=== PATIENT | male | born 1990 | race Caucasian/White ===

== ENCOUNTER 2019-05-15 19:18 | Emergency (ER) | payer SELFPAY ==
[~2019-05-15] VITALS: Ht 172.7 cm; Wt 73.0 kg
[2019-05-15 19:21] VITALS: BP 101/57
[2019-05-15] MEDS ORDERED: LIDOCAINE 1%/EPI 1:100,000 10 ML VIAL IJ ONE (19:45)
[2019-05-15] MEDS ORDERED: ACETAMINOPHEN 325MG TABLET PO ONE (19:45)
[2019-05-15] MEDS ORDERED: LIDOCAINE HCL/PF 1% 10 MG/ML 5ML VIAL IJ ONE (19:45)
[2019-05-15] MEDS ORDERED: TETANUS, DIPHTHERIA, PERTUSSIS VAC/PF 0.5ML (>7YR OLD) IM ONE (19:45)
[2019-05-15] MEDS ORDERED: LIDOCAINE HCL/EPINEPHRINE 1%-EPI 1:100,000 20 ML VIAL INFIL NR (20:45)
== END 2019-05-15 22:49 | disposition home or self-care (01) ==
LOC: ER 19:32
DX: S01.01XA Laceration without foreign body of scalp, initial encounter (principal); S01.119A Laceration without foreign body of unspecified eyelid and periocular area, initial encounter; F10.129 Alcohol abuse with intoxication, unspecified; F17.210 Nicotine dependence, cigarettes, uncomplicated; Y90.9 Presence of alcohol in blood, level not specified; W01.0XXA Fall on same level from slipping, tripping and stumbling without subsequent striking against object, initial encounter; Y93.9 Activity, unspecified; Y92.830 Public park as the place of occurrence of the external cause; Z71.6 Tobacco abuse counseling
CPT/HCPCS: 12002; 12013; 70450; 71045; 72125; 73030; 90471; 90715; 99284; 99406; A4217; J3490; Z7610

== ENCOUNTER 2019-05-17 10:55 | Emergency (ER) | payer SELFPAY ==
[~2019-05-17] VITALS: Ht 167.6 cm; Wt 70.0 kg
[2019-05-17] MEDS ORDERED: IBUPROFEN 600MG TABLET PO ONE (11:30)
[2019-05-17 11:51] VITALS: BP 124/81
== END 2019-05-17 11:51 | disposition home or self-care (01) ==
LOC: ER 10:55
DX: S01.01XD Laceration without foreign body of scalp, subsequent encounter (principal); S01.112D Laceration without foreign body of left eyelid and periocular area, subsequent encounter; Y04.0XXD Assault by unarmed brawl or fight, subsequent encounter
CPT/HCPCS: 99281; 99283

== ENCOUNTER 2019-06-04 12:52 | Emergency (ER) | payer SELFPAY ==
[~2019-06-04] VITALS: Ht 170.2 cm; Wt 70.0 kg
[2019-06-04 15:30] VITALS: BP 148/82
[2019-06-04] MEDS ORDERED: BACITRACIN ZINC OINT UDPKT TOP ONE (15:30)
[2019-06-04] MEDS ORDERED: BACITRACIN 15GM TUBE TOP SCH (16:00)
== END 2019-06-04 15:54 | disposition home or self-care (01) ==
LOC: ER 12:52
DX: S01.112D Laceration without foreign body of left eyelid and periocular area, subsequent encounter (principal); S01.01XD Laceration without foreign body of scalp, subsequent encounter; X58.XXXD Exposure to other specified factors, subsequent encounter
CPT/HCPCS: 99282

== ENCOUNTER 2019-10-07 13:08 | Emergency (ER) | payer SELFPAY ==
[~2019-10-07] VITALS: Ht 165.1 cm; Wt 89.0 kg
[2019-10-07 13:17] VITALS: BP 136/85
== END 2019-10-07 18:57 | disposition left against medical advice (07) ==
LOC: ER 13:08
DX: Z53.21 Procedure and treatment not carried out due to patient leaving prior to being seen by health care provider (principal)

== ENCOUNTER 2020-04-30 13:59 | Emergency (ER) | payer MEDICAID ==
[~2020-04-30] VITALS: Ht 170.2 cm; Wt 69.0 kg
[2020-04-30 18:33] VITALS: BP 120/60
== END 2020-04-30 16:00 | disposition home or self-care (01) ==
LOC: ER 13:59
DX: Z03.818 Encounter for observation for suspected exposure to other biological agents ruled out (principal)
CPT/HCPCS: 99283; C9803; U0003; 99281

== ENCOUNTER 2020-12-16 09:26 | Emergency (ER) | payer MEDICAID ==
[~2020-12-16] VITALS: Ht 175.3 cm; Wt 77.0 kg
[2020-12-16 10:57] VITALS: BP 97/64
[2020-12-19] MEDS ORDERED: CEPH500C2 MT (03:07)
[2020-12-19] MEDS ORDERED: SULF-288 MT (03:07)
[2020-12-19] MEDS ORDERED: MUPI15CR11 TP (16:08)
[2020-12-19] MEDS ORDERED: VALA100044 MT (18:35)
== END 2020-12-16 10:56 | disposition home or self-care (01) ==
LOC: ER 09:26
DX: L73.9 Follicular disorder, unspecified (principal); L01.02 Bockhart's impetigo; L98.8 Other specified disorders of the skin and subcutaneous tissue; R51.9 Headache, unspecified
CPT/HCPCS: 99283

== ENCOUNTER 2021-05-27 12:00 | Emergency (ER) | payer MEDICAID, OTHER ==
[~2021-05-27] VITALS: Ht 170.2 cm; Wt 70.0 kg
[~2021-05-27 12:00] MED LIST: CEPH500C2 MT; MUPI15CR11 TP; SULF-288 MT; VALA100044 MT
[2021-05-27] MEDS ORDERED: ACETAMINOPHEN 325MG TABLET PO ONE (12:45)
[2021-05-27] MEDS ORDERED: IBUPROFEN 400MG TABLET PO ONE (12:45)
[2021-05-27 13:09] VITALS: BP 102/66
[2021-05-27] MEDS ORDERED: ACET-2708 MT (13:14)
[2021-05-27] MEDS ORDERED: NAPR-1176 MT (13:14)
== END 2021-05-27 13:30 | disposition home or self-care (01) ==
LOC: ER 12:00
DX: M79.10 Myalgia, unspecified site (principal); Z20.822 Contact with and (suspected) exposure to COVID-19
CPT/HCPCS: 99283; C9803; U0003; U0005

== ENCOUNTER 2021-06-02 07:57 | Emergency (ER) | payer MEDICAID ==
[~2021-06-02] VITALS: Ht 167.6 cm; Wt 73.0 kg
[~2021-06-02 07:57] MED LIST changes: +ACET-2708 MT; +NAPR-1176 MT
[2021-06-02 09:32] LABS: BASOPHILS % 0.2 % (0.0-2.0); HEMATOCRIT. 50.3 % (42.0-52.0); HEMOGLOBIN. 17.1 g/dL (14.0-18.0); MEAN CORPUSCULAR HEMOGLOBIN 31.6 pg (28.0-32.0); MONOCYTES % 2.9 % (2.0-8.0); NEUTROPHILS % 84.9 % (40.0-76.0); PLATELET 143 x1000/uL (130-400); RED BLOOD CELL COUNT 5.41 mill/uL (4.7-6.1); RED CELL DISTRIBUTION WIDTH 13.6 % (11.6-14.6)
[2021-06-02 09:38] LABS: CHLORIDE 104 mEq/L (98-107)
[2021-06-02] MEDS ORDERED: DEXAMETHASONE 4MG/ML 1ML VIAL IM ONE (10:00)
[2021-06-02] MEDS ORDERED: GUAIFENESIN/CODEINE 200-20MG/10ML UDC PO ONE (10:00)
[2021-06-02] MEDS ORDERED: CODE10LI MT (10:11)
[2021-06-02 10:42] VITALS: BP 112/61
== END 2021-06-02 10:43 | disposition home or self-care (01) ==
LOC: ER 07:57
DX: U07.1 COVID-19 (principal); B34.9 Viral infection, unspecified; Z86.16 Personal history of COVID-19
CPT/HCPCS: 36415; 71045; 80053; 85025; 96372; 99284; J1100

== ENCOUNTER 2021-06-07 02:16 | Inpatient (IN) | payer MEDICAID, OTHER ==
[~2021-06-07] VITALS: Ht 170.2 cm; Wt 68.5 kg
[~2021-06-07 02:16] MED LIST changes: +CODE10LI MT
[2021-06-07 03:01] LABS: CHLORIDE 99 mEq/L (98-107)
[2021-06-07 03:03] LABS: BASOPHILS % 0.2 % (0.0-2.0); EOSINOPHILS % 1.5 % (0.0-5.0); HEMATOCRIT. 47.4 % (42.0-52.0); HEMOGLOBIN. 16.5 g/dL (14.0-18.0); LYMPHOCYTES % 9.8 % (20.0-50.0); MEAN CORPUSCULAR HEMOGLOBIN 31.8 pg (28.0-32.0); MEAN CORPUSCULAR VOLUME 91.3 fL (80.0-94.0); MEAN PLATELET VOLUME 8.3 fl (7.4-10.4); MONOCYTES % 6.4 % (2.0-8.0); NEUTROPHILS % 82.1 % (40.0-76.0); PLATELET 415 x1000/uL (130-400); RED BLOOD CELL COUNT 5.19 mill/uL (4.7-6.1); RED CELL DISTRIBUTION WIDTH 13.6 % (11.6-14.6)
[2021-06-07] MEDS ORDERED: AZITHROMYCIN 500 MG in DEXT 5% WATER 250 ML IV ONE (04:45)
[2021-06-07] MEDS ORDERED: CEFTRIAXONE 1 G PREMIX 50 ML IV ONE (04:45)
[2021-06-07] MEDS ORDERED: IOHEXOL-350 100 ML BOTTLE ONE (06:26)
[2021-06-07] MEDS ORDERED: NALOXONE HCL 0.4MG/ML VIAL IV PRN (09:00)
[2021-06-07] MEDS: HYDROCODONE/ACETAMINOPHEN 10/325MG TABLET PO PRN ×3 (09:17→16:23)
[2021-06-07] MEDS ORDERED: ONDANSETRON HCL 4MG/2ML INJ IV PRN (13:00)
[2021-06-07] MEDS ORDERED: CEFTRIAXONE 1 G PREMIX 50 ML IV SCH (13:00)
[2021-06-07 16:00] VITALS: BP 118/79
[2021-06-07] MEDS: ENOXAPARIN 40MG/0.4ML SYR SUBCUT SCH (16:22)
[2021-06-07] MEDS ORDERED: ALBUTEROL 6.7GM HFA INHALER ORI PRN (16:45)
[2021-06-07] MEDS ORDERED: CHOL400D7 MT (17:00)
[2021-06-07] MEDS ORDERED: ASCO-339 MT (17:00)
[2021-06-07] MEDS ORDERED: ZINC50TA69 MT (17:00)
[2021-06-07 20:00] VITALS: BP 107/77
[2021-06-07] MEDS: ACETAMINOPHEN 325MG TABLET PO PRN (21:41)
[2021-06-07] MEDS ORDERED: ZOLPIDEM TARTRATE 5MG TABLET PO PRN (21:45)
[2021-06-08] VITALS: BP 99/66
[2021-06-08] MEDS: GUAIFENESIN 200MG/10ML SUGAR FREE UDC PO PRN ×2 (02:52→11:57)
[2021-06-08 04:00] VITALS: BP 114/78
[2021-06-08] MEDS: ACETAMINOPHEN 325MG TABLET PO PRN (05:05)
[2021-06-08] MEDS: CEFTRIAXONE 1,000 MG in DEXTROSE 5% WATER 50 ML IV SCH (05:05)
[2021-06-08 06:01] LABS: HEMATOCRIT. 43.8 % (42.0-52.0); HEMOGLOBIN. 14.8 g/dL (14.0-18.0); MEAN CORPUSCULAR HEMOGLOBIN 31.3 pg (28.0-32.0); MEAN CORPUSCULAR VOLUME 92.5 fL (80.0-94.0); MEAN PLATELET VOLUME 8.2 fl (7.4-10.4); PLATELET 371 x1000/uL (130-400); RED BLOOD CELL COUNT 4.73 mill/uL (4.7-6.1); RED CELL DISTRIBUTION WIDTH 13.5 % (11.6-14.6)
[2021-06-08 06:08] LABS: CHLORIDE 98 mEq/L (98-107)
[2021-06-08 08:00] VITALS: BP 105/73
[2021-06-08] MEDS: DEXAMETHASONE 6MG TABLET PO SCH (08:51)
[2021-06-08] MEDS: AZITHROMYCIN 250 MG TABLET PO SCH (08:51)
[2021-06-08] MEDS ORDERED: POTASSIUM CHLORIDE 20MEQ TABLET SR PO NR (13:00)
[2021-06-08] MEDS: LORAZEPAM 2MG/ML CPJ IV PRN ×2 (13:16→20:09)
[2021-06-08] MEDS: ENOXAPARIN 40MG/0.4ML SYR SUBCUT SCH (14:02)
[2021-06-08 16:00] VITALS: BP 111/72
[2021-06-08] MEDS: BENZONATATE 100MG CAPSULE PO PRN (18:02)
[2021-06-08 18:48] VITALS: BP 117/66
[2021-06-08 20:00] VITALS: BP 115/79
[2021-06-08] MEDS: HYDROCODONE/ACETAMINOPHEN 10/325MG TABLET PO PRN (20:08)
[2021-06-08 21:01] LABS: PLATELET ESTIMATE NORMAL
[2021-06-09] VITALS: BP 101/55
[2021-06-09 04:00] VITALS: BP 104/66
[2021-06-09] MEDS: CEFTRIAXONE 1,000 MG in DEXTROSE 5% WATER 50 ML IV SCH (06:40)
[2021-06-09] MEDS: ACETAMINOPHEN 325MG TABLET PO PRN (06:51)
[2021-06-09 08:00] VITALS: BP 112/68
[2021-06-09] MEDS: AZITHROMYCIN 250 MG TABLET PO SCH (08:53)
[2021-06-09] MEDS: DEXAMETHASONE 6MG TABLET PO SCH (08:53)
[2021-06-09] MEDS: LORAZEPAM 2MG/ML CPJ IV PRN (11:02)
[2021-06-09 12:00] VITALS: BP 121/84
[2021-06-09] MEDS: ENOXAPARIN 40MG/0.4ML SYR SUBCUT SCH (13:30)
[2021-06-09 16:00] VITALS: BP 109/67
[2021-06-09] MEDS: HYDROCODONE/ACETAMINOPHEN 10/325MG TABLET PO PRN ×2 (16:39→21:07)
[2021-06-09] MEDS: GUAIFENESIN 200MG/10ML SUGAR FREE UDC PO PRN (16:39)
[2021-06-09 20:00] VITALS: BP 107/71
[2021-06-10] VITALS (53 sets, daily range): BP systolic 99–150; BP diastolic 55–118
[2021-06-10] MEDS: CEFTRIAXONE 1,000 MG in DEXTROSE 5% WATER 50 ML IV SCH (05:24)
[2021-06-10] MEDS: AZITHROMYCIN 250 MG TABLET PO SCH (09:00)
[2021-06-10] MEDS ORDERED: MORPHINE SULFATE 2 MG/ML CPJ (NOT FOR IM USE) IV PRN (09:00)
[2021-06-10 09:41] LABS: BG BASE EXCESS -1.8 mmol/L (-2.0-2.0); BG FRACTION INSPIRED OXYGEN 100; BG HCO3 ACT 23.4 mmol/L (22.0-26.0); BG PCO2 41.6 mmHg (35.0-45.0); BG PH 7.368 (7.350-7.450); BG PO2 139.3 mmHg (75.0-100.0); BG SAMPLE SITE RIGHT RADIAL; BG VENT MODE MASK - CPAP
[2021-06-10] MEDS: FAMOTIDINE 20MG/2ML VIAL IV SCH (09:55)
[2021-06-10] MEDS: DEXAMETHASONE 10 MG/ML VIAL IV SCH (09:55)
[2021-06-10] MEDS: ENOXAPARIN 40MG/0.4ML SYR SUBCUT SCH (14:12)
[2021-06-10] MEDS: AZITHROMYCIN 250 MG in DEXT 5% WATER 250 ML IV SCH (14:13)
[2021-06-10] MEDS: IVERMECTIN 3 MG TABLET PO SCH (16:51)
[2021-06-10] MEDS: ACETAMINOPHEN 325MG TABLET PO PRN (16:51)
[2021-06-10] MEDS: HYDROCODONE/ACETAMINOPHEN 10/325MG TABLET PO PRN (20:28)
[2021-06-11] VITALS (69 sets, daily range): BP systolic 49–162; BP diastolic 43–99
[2021-06-11] MEDS: HYDROCODONE/ACETAMINOPHEN 10/325MG TABLET PO PRN (01:04)
[2021-06-11] MEDS: CEFTRIAXONE 1,000 MG in DEXTROSE 5% WATER 50 ML IV SCH (05:17)
[2021-06-11 05:21] LABS: HEMATOCRIT. 45.6 % (42.0-52.0); HEMOGLOBIN. 15.6 g/dL (14.0-18.0); MEAN CORPUSCULAR HEMOGLOBIN 31.3 pg (28.0-32.0); MEAN CORPUSCULAR VOLUME 91.4 fL (80.0-94.0); MEAN PLATELET VOLUME 8.1 fl (7.4-10.4); PLATELET 248 x1000/uL (130-400); RED BLOOD CELL COUNT 4.99 mill/uL (4.7-6.1); RED CELL DISTRIBUTION WIDTH 13.7 % (11.6-14.6)
[2021-06-11 05:24] LABS: CHLORIDE 99 mEq/L (98-107)
[2021-06-11] MEDS: FAMOTIDINE 20MG/2ML VIAL IV SCH (08:33)
[2021-06-11] MEDS: DEXAMETHASONE 10 MG/ML VIAL IV SCH (08:33)
[2021-06-11 09:49] LABS: PLATELET ESTIMATE NORMAL
[2021-06-11] MEDS: LORAZEPAM 2MG/ML CPJ IV PRN ×3 (11:49→23:35)
[2021-06-11] MEDS ORDERED: HALOPERIDOL LACTATE 5MG/ML VIAL IM PRN (14:15)
[2021-06-11] MEDS: ENOXAPARIN 40MG/0.4ML SYR SUBCUT SCH (14:20)
[2021-06-11] MEDS: AZITHROMYCIN 250 MG in DEXT 5% WATER 250 ML IV SCH (14:21)
[2021-06-11 17:15] LABS: *AMPHETAMINES SCREEN URINE NEGATIVE (NEGATIVE); *BARBITURATES SCREEN URINE NEGATIVE (NEGATIVE); *BENZODIAZEPINES SCREEN URINE NEGATIVE (NEGATIVE); *COCAINE SCREEN URINE NEGATIVE (NEGATIVE); METHADONE URINE SCREEN NEGATIVE (NEGATIVE); OPIATES URINE SCREEN PRESUMTIVE POSITIVE (NEGATIVE)
[2021-06-11 17:16] LABS: CANNABINOID URINE SCREEN NEGATIVE (NEGATIVE); PHENCYCLIDINE URINE SCREEN NEGATIVE (NEGATIVE)
[2021-06-11] MEDS: IVERMECTIN 3 MG TABLET PO SCH (18:06)
[2021-06-12] VITALS (50 sets, daily range): BP systolic 96–136; BP diastolic 37–92
[2021-06-12] MEDS: FAMOTIDINE 20MG/2ML VIAL IV SCH (09:51)
[2021-06-12] MEDS: DEXAMETHASONE 10 MG/ML VIAL IV SCH (09:51)
[2021-06-12] MEDS: ENOXAPARIN 40MG/0.4ML SYR SUBCUT SCH (14:28)
[2021-06-12] MEDS: ACETAMINOPHEN 325MG TABLET PO PRN ×2 (15:01→23:03)
[2021-06-12] MEDS: IVERMECTIN 3 MG TABLET PO SCH (15:01)
[2021-06-13] VITALS (22 sets, daily range): BP systolic 90–140; BP diastolic 47–86
[2021-06-13] MEDS: FAMOTIDINE 20MG/2ML VIAL IV SCH (08:02)
[2021-06-13] MEDS: DEXAMETHASONE 10 MG/ML VIAL IV SCH (08:02)
[2021-06-13] MEDS: LORAZEPAM 2MG/ML CPJ IV PRN ×2 (11:31→23:16)
[2021-06-13 11:46] LABS: HEMATOCRIT. 45.3 % (42.0-52.0); HEMOGLOBIN. 15.3 g/dL (14.0-18.0); MEAN CORPUSCULAR HEMOGLOBIN 31.2 pg (28.0-32.0); MEAN CORPUSCULAR VOLUME 92.7 fL (80.0-94.0); MEAN PLATELET VOLUME 8.9 fl (7.4-10.4); PLATELET 334 x1000/uL (130-400); RED BLOOD CELL COUNT 4.89 mill/uL (4.7-6.1); RED CELL DISTRIBUTION WIDTH 13.3 % (11.6-14.6)
[2021-06-13 13:47] LABS: CHLORIDE 100 mEq/L (98-107)
[2021-06-13] MEDS: ENOXAPARIN 40MG/0.4ML SYR SUBCUT SCH (14:08)
[2021-06-13 14:56] LABS: PLATELET ESTIMATE NORMAL
[2021-06-13] MEDS: IVERMECTIN 3 MG TABLET PO SCH (15:55)
[2021-06-14] VITALS: BP 109/79
[2021-06-14 04:00] VITALS: BP 110/67
[2021-06-14 08:00] VITALS: BP 96/64
[2021-06-14] MEDS: FAMOTIDINE 20MG/2ML VIAL IV SCH (10:33)
[2021-06-14] MEDS: DEXAMETHASONE 10 MG/ML VIAL IV SCH (10:33)
[2021-06-14 12:00] VITALS: BP 106/71
[2021-06-14] MEDS: ENOXAPARIN 40MG/0.4ML SYR SUBCUT SCH (13:28)
[2021-06-14 16:00] VITALS: BP 110/79
[2021-06-14] MEDS: IVERMECTIN 3 MG TABLET PO SCH (17:00)
[2021-06-14 20:00] VITALS: BP 115/79
[2021-06-14] MEDS: FAMOTIDINE 20MG TABLET PO SCH (22:17)
[2021-06-14] MEDS: LORAZEPAM 2MG/ML CPJ IV PRN (22:18)
[2021-06-15] VITALS: BP 100/76
[2021-06-15 04:00] VITALS: BP 103/67
[2021-06-15 08:00] VITALS: BP 112/70
[2021-06-15] MEDS: DEXAMETHASONE 10 MG/ML VIAL IV SCH (10:39)
[2021-06-15] MEDS: FAMOTIDINE 20MG TABLET PO SCH ×2 (10:39→21:06)
[2021-06-15 12:00] VITALS: BP 112/70
[2021-06-15] MEDS: ENOXAPARIN 40MG/0.4ML SYR SUBCUT SCH (14:51)
[2021-06-15 16:00] VITALS: BP 118/71
[2021-06-15 20:00] VITALS: BP 104/71
[2021-06-15] MEDS: ACETAMINOPHEN 325MG TABLET PO PRN (23:35)
[2021-06-16] VITALS: BP 110/67
[2021-06-16 04:00] VITALS: BP 105/57
[2021-06-16] MEDS: LORAZEPAM 2MG/ML CPJ IV PRN (04:37)
[2021-06-16 08:00] VITALS: BP 107/55
[2021-06-16] MEDS: DEXAMETHASONE 10 MG/ML VIAL IV SCH (10:17)
[2021-06-16] MEDS: BENZONATATE 100MG CAPSULE PO PRN (10:18)
[2021-06-16] MEDS: FAMOTIDINE 20MG TABLET PO SCH ×2 (10:18→21:29)
[2021-06-16] MEDS: ACETAMINOPHEN 325MG TABLET PO PRN ×2 (10:18→21:29)
[2021-06-16 12:00] VITALS: BP 110/69
[2021-06-16 15:50] LABS: BG BASE EXCESS 2.3 mmol/L (-2.0-2.0); BG CARBOXYHEMOGLOBIN 0.6 % (0.5-1.5); BG FRACTION INSPIRED OXYGEN 21; BG HCO3 ACT 26.6 mmol/L (22.0-26.0); BG METHEMOGLOBIN 0.2 % (0.0-1.5); BG OXYGEN SATURATION 91.9 % (92.0-98.5); BG OXYHEMOGLOBIN 91.2 % (94.0-97.0); BG PCO2 40.6 mmHg (35.0-45.0); BG PH 7.435 (7.350-7.450); BG PO2 58.4 mmHg (75.0-100.0); BG SAMPLE SITE RIGHT BRACHIAL; BG TOTAL HEMOGLOBIN 16.5 g/dL (12.0-18.0); BG VENT MODE ROOM AIR
[2021-06-16] MEDS: ENOXAPARIN 40MG/0.4ML SYR SUBCUT SCH (16:06)
[2021-06-16 16:15] VITALS: BP 107/71
[2021-06-16 20:00] VITALS: BP 115/77
[2021-06-16] MEDS: ZOLPIDEM TARTRATE 5MG TABLET PO PRN (21:29)
[2021-06-17] VITALS: BP 107/76
[2021-06-17 04:00] VITALS: BP 105/71
[2021-06-17] MEDS: ACETAMINOPHEN 325MG TABLET PO PRN ×2 (05:19→19:58)
[2021-06-17 08:06] VITALS: BP 123/75
[2021-06-17] MEDS: FAMOTIDINE 20MG TABLET PO SCH ×2 (08:46→20:00)
[2021-06-17] MEDS: DEXAMETHASONE 10 MG/ML VIAL IV SCH (08:46)
[2021-06-17 12:00] VITALS: BP 115/72
[2021-06-17] MEDS: ENOXAPARIN 40MG/0.4ML SYR SUBCUT SCH (13:39)
[2021-06-17 16:00] VITALS: BP 129/86
[2021-06-17 20:00] VITALS: BP 125/73
[2021-06-17] MEDS: ZOLPIDEM TARTRATE 5MG TABLET PO PRN (22:30)
[2021-06-18] VITALS: BP 104/73
[2021-06-18] MEDS ORDERED: HYDROCODONE/ACETAMINOPHEN 10/325MG TABLET PO PRN
[2021-06-18 04:00] VITALS: BP 103/69
[2021-06-18 08:00] VITALS: BP 112/80
[2021-06-18] MEDS: DEXAMETHASONE 10 MG/ML VIAL IV SCH (08:26)
[2021-06-18] MEDS: BENZONATATE 100MG CAPSULE PO PRN ×2 (08:26→23:52)
[2021-06-18] MEDS: FAMOTIDINE 20MG TABLET PO SCH ×2 (08:27→20:04)
[2021-06-18 12:00] VITALS: BP 127/73
[2021-06-18] MEDS: ENOXAPARIN 40MG/0.4ML SYR SUBCUT SCH (12:49)
[2021-06-18 16:00] VITALS: BP 117/76
[2021-06-18] MEDS: ALBUTEROL 6.7GM HFA INHALER ORI PRN (17:20)
[2021-06-18] MEDS: LIDOCAINE 5% PATCH TOP SCH (18:15)
[2021-06-18 20:00] VITALS: BP 106/72
[2021-06-18] MEDS: KETOROLAC 30MG/ML VIAL IV PRN (20:05)
[2021-06-18] MEDS: ACETAMINOPHEN 325MG TABLET PO PRN (23:52)
[2021-06-19] VITALS: BP 110/75
[2021-06-19] MEDS: ZOLPIDEM TARTRATE 5MG TABLET PO PRN (00:44)
[2021-06-19 04:00] VITALS: BP 94/55
[2021-06-19 08:00] VITALS: BP 95/62
[2021-06-19] MEDS: DEXAMETHASONE 10 MG/ML VIAL IV SCH (08:32)
[2021-06-19] MEDS: FAMOTIDINE 20MG TABLET PO SCH ×2 (08:32→21:15)
[2021-06-19] MEDS: ALBUTEROL 6.7GM HFA INHALER ORI PRN ×2 (09:02→18:24)
[2021-06-19] MEDS: ACETAMINOPHEN 325MG TABLET PO PRN ×2 (10:10→16:19)
[2021-06-19 12:00] VITALS: BP 128/82
[2021-06-19] MEDS: ENOXAPARIN 40MG/0.4ML SYR SUBCUT SCH (12:53)
[2021-06-19] MEDS: KETOROLAC 30MG/ML VIAL IV PRN (12:53)
[2021-06-19 16:00] VITALS: BP 111/80
[2021-06-19] MEDS: LIDOCAINE 5% PATCH TOP SCH (16:11)
[2021-06-19 20:00] VITALS: BP 109/73
[2021-06-19] MEDS: TRAMADOL 50MG TABLET PO PRN (21:16)
[2021-06-20] VITALS: BP 119/55
[2021-06-20] MEDS: ZOLPIDEM TARTRATE 5MG TABLET PO PRN (00:15)
[2021-06-20] MEDS: ACETAMINOPHEN 325MG TABLET PO PRN (00:15)
[2021-06-20 04:00] VITALS: BP 95/63
[2021-06-20] MEDS: TRAMADOL 50MG TABLET PO PRN (06:41)
[2021-06-20] MEDS: ALBUTEROL 6.7GM HFA INHALER ORI PRN ×2 (07:05→13:47)
[2021-06-20 08:00] VITALS: BP 106/72
[2021-06-20] MEDS: FAMOTIDINE 20MG TABLET PO SCH ×2 (08:37→20:18)
[2021-06-20] MEDS: DEXAMETHASONE 10 MG/ML VIAL IV SCH (08:37)
[2021-06-20] MEDS: KETOROLAC 30MG/ML VIAL IV PRN ×3 (09:59→20:19)
[2021-06-20 12:00] VITALS: BP 136/88
[2021-06-20] MEDS: ENOXAPARIN 40MG/0.4ML SYR SUBCUT SCH (12:30)
[2021-06-20] MEDS ORDERED: IPRATROPIUM/ALBUTEROL 0.5-3(2.5)MG/3ML NEB HHN PRN (14:00)
[2021-06-20] MEDS ORDERED: NALOXONE HCL 0.4MG/ML VIAL IV PRN (14:45)
[2021-06-20 16:00] VITALS: BP 135/89
[2021-06-20] MEDS: LIDOCAINE 5% PATCH TOP SCH (16:38)
[2021-06-20 20:00] VITALS: BP 127/73
[2021-06-20] MEDS: IPRATROPIUM/ALBUTEROL 0.5-3(2.5)MG/3ML NEB HHN SCH (21:54)
[2021-06-21] VITALS: BP 112/72
[2021-06-21] MEDS: ZOLPIDEM TARTRATE 5MG TABLET PO PRN (00:18)
[2021-06-21] MEDS: IPRATROPIUM/ALBUTEROL 0.5-3(2.5)MG/3ML NEB HHN SCH ×4 (03:50→21:13)
[2021-06-21 04:00] VITALS: BP 127/70
[2021-06-21] MEDS: KETOROLAC 30MG/ML VIAL IV PRN (04:07)
[2021-06-21 08:00] VITALS: BP 106/74
[2021-06-21] MEDS: DEXAMETHASONE 10 MG/ML VIAL IV SCH (08:53)
[2021-06-21] MEDS: BENZONATATE 100MG CAPSULE PO PRN ×2 (08:53→21:18)
[2021-06-21] MEDS: FAMOTIDINE 20MG TABLET PO SCH ×2 (08:53→21:19)
[2021-06-21 12:00] VITALS: BP 114/76
[2021-06-21] MEDS: ENOXAPARIN 40MG/0.4ML SYR SUBCUT SCH (13:31)
[2021-06-21] MEDS: GUAIFENESIN 200MG/10ML SUGAR FREE UDC PO PRN (15:48)
[2021-06-21 16:00] VITALS: BP 136/82
[2021-06-21] MEDS: LIDOCAINE 5% PATCH TOP SCH (17:23)
[2021-06-21] MEDS: ACETAMINOPHEN 325MG TABLET PO PRN (18:57)
[2021-06-21 20:00] VITALS: BP 111/80
[2021-06-21] MEDS: TRAMADOL 50MG TABLET PO PRN (21:18)
[2021-06-21] MEDS ORDERED: ZOLPIDEM TARTRATE 5MG TABLET PO PRN (21:30)
[2021-06-22] VITALS: BP 117/79
[2021-06-22] MEDS: GUAIFENESIN 200MG/10ML SUGAR FREE UDC PO PRN (01:15)
[2021-06-22] MEDS: IPRATROPIUM/ALBUTEROL 0.5-3(2.5)MG/3ML NEB HHN SCH ×2 (01:57→09:43)
[2021-06-22 04:00] VITALS: BP 98/57
[2021-06-22 08:00] VITALS: BP 103/65
[2021-06-22] MEDS: FAMOTIDINE 20MG TABLET PO SCH (08:23)
[2021-06-22] MEDS: BENZONATATE 100MG CAPSULE PO PRN (08:23)
[2021-06-22] MEDS: DEXAMETHASONE 10 MG/ML VIAL IV SCH (08:23)
[2021-06-22] MEDS ORDERED: PHENOL/SODIUM PHENOLATE 1.4% SRPAY 177ML MM PRN (09:00)
[2021-06-22 12:00] VITALS: BP 127/76
== END 2021-06-22 15:20 | disposition home or self-care (01) | DRG 720 ==
LOC: ER 02:16 → MICUSO 05:41 → EDBEDREQTM 05:47 → EDBEDREQ 05:47 → 7WST 13:56 → MICUSO 06-10 08:01 → 7WST 06-13 14:48 → 7EST 06-17 15:02
PROVIDERS: ADMIT Internal Medicine; ATTEND Internal Medicine
PROC: 5A09357 Assistance with Respiratory Ventilation, Less than 24 Consecutive Hours, Continuous Positive Airway Pressure (ICD-10-PCS; principal; 2021-06-10)
DX: A41.89 Other specified sepsis (principal); J96.01 Acute respiratory failure with hypoxia; J12.82 Pneumonia due to coronavirus disease 2019; U07.1 COVID-19; E43 Unspecified severe protein-calorie malnutrition; J20.8 Acute bronchitis due to other specified organisms; E87.1 Hypo-osmolality and hyponatremia; R74.01 Elevation of levels of liver transaminase levels; E87.2 Acidosis; F41.9 Anxiety disorder, unspecified; Z82.49 Family history of ischemic heart disease and other diseases of the circulatory system; Z68.23 Body mass index [BMI] 23.0-23.9, adult; Z79.899 Other long term (current) drug therapy; R65.20 Severe sepsis without septic shock
CPT/HCPCS: 36415; 36600; 71045; 71275; 80048; 80053; 80305; 82375; 82728; 82805; 82962; 83605; 83615; 83880; 84145; 84484; 85025; 85379; 86140; 87426; 93005; 93970; 94618; 94640; 94660; 99291; C1893; J0456; J0696; J1100; J1630; J1650; J1885; J2060; J2270; J3490; J7040; J7060; Q9967; U0003; U0005

== ENCOUNTER 2024-04-17 21:45 | Emergency (ER) | payer OTHER ==
[~2024-04-17] VITALS: Ht 172.7 cm; Wt 78.0 kg
[~2024-04-17 21:45] MED LIST changes: -CEPH500C2 MT; -CODE10LI MT; +CODE10LI2 MT; -SULF-288 MT
[2024-04-17 22:08] VITALS: TEMP 98.3; O2SAT 97
[2024-04-18 00:45] VITALS: BP 109/76; PULSE 111; RESP 20
[2024-04-18] MEDS: KETOROLAC 15MG/ML VIAL IM ONE (00:45)
[2024-04-18] MEDS: KETOROLAC 15MG/ML VIAL IM NR (01:05)
== END 2024-04-18 01:05 | disposition home or self-care (01) ==
LOC: ER 21:45
DX: S00.83XA Contusion of other part of head, initial encounter (principal); Y08.89XA Assault by other specified means, initial encounter; Y93.89 Activity, other specified; Y92.89 Other specified places as the place of occurrence of the external cause; Y99.8 Other external cause status
CPT/HCPCS: 99283; J1885

== ENCOUNTER 2024-06-19 10:39 | Emergency (ER) | payer OTHER ==
[~2024-06-19] VITALS: Ht 170.2 cm; Wt 65.0 kg
[2024-06-19 11:05] VITALS: O2SAT 97
[2024-06-19] MEDS ORDERED: IBUP-2029 MT (12:24)
[2024-06-19] MEDS: IBUPROFEN 600MG TABLET PO ONE (13:09)
[2024-06-19 13:14] VITALS: BP 131/80; PULSE 70; RESP 18; TEMP 36.72516; O2SAT 97
== END 2024-06-19 13:03 | disposition home or self-care (01) ==
LOC: ER 10:39
DX: S86.811A Strain of other muscle(s) and tendon(s) at lower leg level, right leg, initial encounter (principal); X58.XXXA Exposure to other specified factors, initial encounter; Y93.02 Activity, running; Y92.89 Other specified places as the place of occurrence of the external cause; Y99.8 Other external cause status
CPT/HCPCS: 73560; 99283

== ENCOUNTER 2024-09-23 12:22 | Emergency (ER) | payer OTHER ==
[~2024-09-23] VITALS: Ht 170.2 cm; Wt 69.0 kg
[~2024-09-23 12:22] MED LIST changes: +IBUP-2029 MT
[2024-09-23 12:27] VITALS: O2SAT 97
[2024-09-23 12:28] VITALS: BP 124/92; PULSE 99; RESP 16; TEMP 98.5; O2SAT 100
[2024-09-23] MEDS: IBUPROFEN 600MG TABLET PO ONE (13:57)
[2024-09-23] MEDS ORDERED: IBUP-2029 MT (14:09)
== END 2024-09-23 15:17 | disposition home or self-care (01) ==
LOC: ER 12:22
DX: S20.219A Contusion of unspecified front wall of thorax, initial encounter (principal); X58.XXXA Exposure to other specified factors, initial encounter; Y93.89 Activity, other specified; Y92.89 Other specified places as the place of occurrence of the external cause; Y99.8 Other external cause status
CPT/HCPCS: 71101; 99283; Z7610 ×2

== ENCOUNTER 2024-12-22 08:45 | Emergency (ER) | payer OTHER ==
[~2024-12-22] VITALS: Ht 170.2 cm; Wt 70.3 kg
[2024-12-22 08:52] VITALS: BP 129/69; RESP 16; TEMP 36.9; O2SAT 98
[2024-12-22 08:53] VITALS: PULSE 72
[2024-12-22] MEDS: TETRACAINE 0.5% OPHTH DROPS 4ML BOTHEYE ONE (09:35)
[2024-12-22] MEDS: FLUORESCEIN SODIUM 1MG/STRIP BOTHEYE ONE (09:35)
[2024-12-22] MEDS: TOBRAMYCIN 0.3% OPHTH DROPS 5ML OP SCH (09:46)
[2024-12-22] MEDS ORDERED: TOBRO RIGHTEYE (09:48)
== END 2024-12-22 10:29 | disposition home or self-care (01) ==
LOC: ER 08:45
DX: S05.01XA Injury of conjunctiva and corneal abrasion without foreign body, right eye, initial encounter (principal); Z79.1 Long term (current) use of non-steroidal anti-inflammatories (NSAID); Z79.624 Long term (current) use of inhibitors of nucleotide synthesis; X58.XXXA Exposure to other specified factors, initial encounter; Y93.89 Activity, other specified; Y92.89 Other specified places as the place of occurrence of the external cause; Y99.8 Other external cause status
CPT/HCPCS: 99283

== ENCOUNTER 2025-08-12 10:10 | Emergency (ER) | payer MEDICAID, OTHER ==
[~2025-08-12] VITALS: Ht 172.7 cm; Wt 75.0 kg
[~2025-08-12 10:10] MED LIST changes: +IBUP-1455 MT; -IBUP-2029 MT; +TOBRO RIGHTEYE
[2025-08-12 10:22] VITALS: O2SAT 98
[2025-08-12] MEDS: FAMOTIDINE 20MG TABLET PO ONE (11:21)
[2025-08-12] MEDS: MAGNESIUM/ALUMINUM HYDROXIDE/SIMETHICONE 30ML UDC PO ONE (11:21)
[2025-08-12 11:49] LABS: BASOPHILS % 0.4 % (0.0-2.0); EOSINOPHILS % 2.2 % (0.0-5.0); HEMATOCRIT. 48.0 % (42.0-52.0); HEMOGLOBIN. 15.7 g/dL (14.0-18.0); LYMPHOCYTES % 20.1 % (20.0-50.0); MEAN PLATELET VOLUME 9.6 fl (7.4-10.4); MONOCYTES % 8.4 % (2.0-8.0); NEUTROPHILS % 68.9 % (40.0-76.0); PLATELET 234 x1000/uL (130-400); RED BLOOD CELL COUNT 5.04 mill/uL (4.7-6.1); RED CELL DISTRIBUTION WIDTH 13.3 % (11.6-14.6)
[2025-08-12 12:05] LABS: CREATININE 1.0 mg/dL (0.6-1.3)
[2025-08-12 12:06] LABS: UREA NITROGEN BLOOD 12 mg/dL (9-23)
[2025-08-12 12:08] LABS: ASPARTATE AMINOTRANSFERASE 20 IU/L (<34); BILIRUBIN DIRECT 0.2 mg/dL (<=3.0); BILIRUBIN TOTAL 0.6 mg/dL (0.1-1.0); PROTEIN TOTAL 6.2 g/dL (6.0-8.3)
[2025-08-12 12:16] LABS: CLARITY URINE CLEAR (CLEAR); COLOR URINE YELLOW (YELLOW); GLUCOSE URINE NEGATIVE (NEGATIVE); KETONES URINE NEGATIVE (NEGATIVE); LEUKOCYTE ESTERASE URINE NEGATIVE (NEGATIVE); NITRITE URINE NEGATIVE (NEGATIVE); OCCULT BLOOD URINE NEGATIVE (NEGATIVE); PH URINE 7.5 (4.5-8.0); PROTEIN URINE NEGATIVE (NEGATIVE); SPECIFIC GRAVITY URINE 1.016 (1.005-1.030); UROBILINOGEN URINE 0.2 E.U./dL (0.2-1.0)
[2025-08-12] MEDS ORDERED: FAMO-134 MT (12:19)
[2025-08-12 12:21] VITALS: BP 123/68; PULSE 81; RESP 18; TEMP 36.6; O2SAT 99
== END 2025-08-12 12:27 | disposition home or self-care (01) ==
LOC: ER 10:10
DX: R10.13 Epigastric pain (principal); Z79.624 Long term (current) use of inhibitors of nucleotide synthesis; Z79.1 Long term (current) use of non-steroidal anti-inflammatories (NSAID); Z79.899 Other long term (current) drug therapy
CPT/HCPCS: 36415; 80048; 80076; 81003; 85025; 99283